=== PATIENT | male | born 1995 | race Caucasian/White ===

== ENCOUNTER 2016-10-15 03:08 | Outpatient (CLI) | payer MEDICAID | END 2016-10-15 03:09 | disposition EMS.NT | LOC: EMS 03:08 | PROVIDERS: ATTEND Surgery | DX: S09.90XA Unspecified injury of head, initial encounter (principal); Y08.89XA Assault by other specified means, initial encounter ==

== ENCOUNTER 2016-12-10 03:08 | Outpatient (CLI) | payer OTHER, MEDICAID | END 2016-12-10 03:09 | disposition home or self-care (01) | LOC: LAB 03:08 | PROVIDERS: ATTEND Pathology Blood Banking & Transfusion Medicine | DX: Z01.89 Encounter for other specified special examinations (principal) ==